=== PATIENT | male | born 1940 | race Caucasian/White ===

== ENCOUNTER 2019-01-22 17:13 | Inpatient (IN) | payer MEDICARE ==
--- OUTSIDE RECORDS SUMMARY | 2019-01-22 17:20 | XMS REPORT | Continuity of Care Document ---
:1940 External Reference #:[id number] Author Name Liset Flores M.D. (transmitted by agent of provider Rashmi Mejia) Address [address] [place] [address] Problems Active Problems Provider Date Right bundle branch block Liset Flores M.D. Onset: 01/20/2018 Dyspnea Liset Flores M.D. Onset: 01/20/2018 Paroxysmal atrial fibrillation Liset Flores M.D. Onset: 09/19/2015 Gastroesophageal reflux disease Liset Flores M.D. Onset: 05/16/2015 Chest pain Liset Flores M.D. Onset: 04/04/2015 Paroxysmal atrial fibrillation Liset Flores M.D. Onset: 03/17/2015 Hyperlipidemia Liset Flores M.D. Onset: 03/17/2015 Pure hypercholesterolemia Liset Flores M.D. Onset: 07/13/2013 Mitral valve disorder Liset Flores M.D. Onset: 07/13/2013 Social History Type Date Description Comments Sex Unknown Tobacco Use Start: Unknown End: Former Cigarette Smoker Unknown Smoking Status Reviewed: 01/20/18 Former Cigarette Smoker ETOH Use consumes 1-2 beers per not every week week Tobacco Use Start: Unknown End: Patient is a former quit smoking in Unknown smoker 1977 Recreational Drug Use Denies Drug Use Exercise Type/Frequency Exercises sporadically active around the home. Allergies, Adverse Reactions, Alerts Active Allergies Reaction Severity Comments Date Oxycodone 07/10/2013 Vicodin 07/10/2013 Lipitor myalgias, incr LFT's 07/10/2013 Metoprolol profound fatigue. 07/30/2014 Multaq diarrhea 07/30/2014 Sutures silk suture, erosion of skin 07/30/2014 Cardizem CD rash rash 03/17/2015 Medications Active Medications SIG Qnty Indications Ordering Provider Date Zetia 1 by mouth 90tabs E78.5 Liset Flores M.D. 04/04/2015 10mg Tablets every day Atenolol 1 by mouth 90tabs Liset Flores M.D. 04/02/2015 25mg Tablets every day Aspirin Low Dose 1 by mouth Liset Flores M.D. 04/01/2015 81mg every day Tablets Glucosamine daily Unknown Chondroitin Tablets Senna S 1-2 tabs every Unknown 8.6-50mg Tablets day Multivitamin Adult 1 by mouth Unknown every day Tablets Medications Administered in Office Medication SIG Qnty Indications Ordering Provider Date Technetium TC 99M Reinier Nima Leger M.D., 04/01/2015 Tetrofosmin, Per Unit Dose FACC, FASNC Up To 40 Millicuries Injection Technetium TC 99M Liset Flores M.D. 04/01/2015 Tetrofosmin, Per Unit Dose Up To 40 Millicuries Injection Immunizations Description No Information Available Vital Signs Date Vital Result Comment 01/20/2018 8:11am Height 72.25 inches 6'0.25" Weight 173.00 lb w/ shoes Heart Rate 66 /min BP Systolic Sitting 112 mmHg lue rg cuff BP Diastolic Sitting 54 mmHg lue rg cuff BP Systolic Standing 120 mmHg lue rg cuff BP Diastolic Standing 64 mmHg lue rg cuff Respiratory Rate 18 /min BMI (Body Mass Index) 23.3 kg/m2 Ejection Fraction 50-55% 12/28/17 12/30/2016 3:02pm Height 72.25 inches 6'0.25" Weight 165.00 lb Heart Rate 60 /min BP Systolic Sitting 102 mmHg Rue reg cuff BP Diastolic Sitting 60 mmHg Rue reg cuff BP Systolic Standing 102 mmHg Rue BP Diastolic Standing 62 mmHg Rue Respiratory Rate 16 /min BMI (Body Mass Index) 22.2 kg/m2 Ejection Fraction 50-55% 12/21/16 Results Description No Information Available Procedures Date Code Description Status 12/29/2018 89643 ECHO Transthoracic, Real-Time 2D With Doppler And Color Completed Flow 12/29/2018 89700 ECHO Transthoracic, Real-Time 2D With Doppler And Color Completed Flow Medical Devices Description No Information Available Encounters Description No Information Available Assessments Date Code Description Provider 01/16/2019 I34.0 Nonrheumatic mitral (valve) insufficiency Liset Flores M.D. 01/16/2019 R94.39 Abnormal result of other cardiovascular function Liset Flores M.D. study 12/29/2018 I34.0 Nonrheumatic mitral (valve) insufficiency Liset Flores M.D. 12/29/2018 I34.0 Nonrheumatic mitral (valve) insufficiency Traveling ECHO 2 12/29/2018 R06.02 Shortness of breath Liset Flores M.D. 12/29/2018 R06.02 Shortness of breath Traveling ECHO 2 Plan of Treatment Future Appointment(s):01/22/2019 3:20 pm [facility] - Liset Flores M.D.I34.0 Nonrheumatic mitral (valve ) lynzfiehgizktX53.39 Abnormal result of other cardiovascular function studyComments:Your stress test showed a lot of leaking and the heart strength did not improve as much as it should.Plan: refer back to Dr Estrada.Referral: Chong Estrada MD, Surgery,ThoracicKnightChong MD, Surgery,Thoracic Functional Status Description No Information Available Mental Status Description No Information Available Referrals Refer to Reason for Referral Status Appt Date Chong Estrada MD I feel pt needs redo MV sx. Stress echo today Sent report and images and echo images should be included. Call if not. [address], [place] [id number] [phone] Chong Estrada MD Needs redo MV sx, see enclosed echo, SE reports Created and CD [address], [place] [id number] [phone]
--- OUTSIDE RECORDS SUMMARY | 2019-01-22 17:20 | XMS REPORT | Summary of Care ---
:1940 Author Organization [facility] Address [address] [address] Care Team Providers Name Role Phone Alysa Pascual MD Primary Care Provider Reason for Visit Reason Comments Knee Pain left knee pain that radiates to left foot ( botton of foot has burning pain ). knee problem is ongoing for 4 weeks and foot pain started tuesday Encounter Details Date Type Department Care Team Description 12/27/2018 Office Visit [place] [facility], Chronic pain of left knee (Primary Dx); Practice PA-C Foot pain, left [address] [place] [address] [place] [address] [phone] Allergies Active Allergy Reactions Severity Noted Date Comments Cardizem Rash 03/10/2015 Atorvastatin Calcium 07/03/2007 Intolerance Oxycodone-Acetaminophen Unknown Reaction 11/04/2010 Pradaxa GI Reaction 03/02/2016 Silk Sutures Other 03/02/2016 infection Hydrocodone-Acetaminophen 07/03/2007 Intolerance documented as of this encounter (statuses as of 12/27/2018) Medications Medication Sig Dispensed Refills Start Date End Date Status ezetimibe (ZETIA) 10 MG Take 10 mg by 0 Active Oral Tab mouth DAILY. aspirin (ECOTRIN) 81 MG Take 81 mg by 0 Active Oral Tab EC mouth DAILY. atenolol (TENORMIN) 25 Take 25 mg by 0 Active MG Oral Tab mouth DAILY. Misc Natural Products Take by mouth 0 Active (OSTEO BI-FLEX JOINT DAILY. SHIELD PO) IBUPROFEN 200 PO Take 400 mg by 0 Active mouth NEEDED. Multiple Vitamin Take by mouth 0 Active (MULTI-VITAMIN PO) DAILY. Omeprazole 40 MG Oral Take 1 Cap by 90 Cap 1 02/13/2018 Active CAPSULE DELAYED RELEASE mouth DAILY 0700 on Empty Stomach. documented as of this encounter (statuses as of 12/27/2018) Active Problems Problem Noted Date Paroxysmal supraventricular tachycardia 03/23/2011 Overview: Dx: [facility] 03/16/2011 Dr. Flores Rotator cuff tear 09/02/2010 Unspecified hearing loss 01/01/2009 Mitral valve replaced 07/04/2007 Overview: Repair [place] 1999; Dr Fish; follows with Dr Flores BPH (benign prostatic hypertrophy) 07/04/2007 Hypercholesterolemia 07/28/2005 Rosacea 07/28/2005 documented as of this encounter (statuses as of 12/27/2018) Immunizations Name Administration Dates Next Due DTAP Vaccine 07/04/2007 Influenza (IM) Preservative Free 02/01/2014, 03/06/2013, 01/24/2012 Influenza Vaccine High Dose 02/13/2018, 02/06/2017, 02/04/2016, 02/01/2015 PNEUMOCOCCAL POLYSACCHARIDE VACCINE 06/10/2017 Pneumococcal Conjugate(13 Valent) 08/12/2014 TETANUS & DIPHTHERIA TOXOID (OVER 7 07/26/2005 YRS) ZOSTER (ZOSTAVAX) VACCINE 08/01/2013 documented as of this encounter Social History Tobacco Use Types Packs/Day Years Used Date Former Smoker Smokeless Tobacco: Never Used Alcohol Use Drinks/Week oz/Week Comments Yes 0 Standard drinks or equivalent 0.0 rarely Sex Assigned at Date Recorded Not on file Job Start Date Occupation Industry Not on file Not on file Not on file Travel History Travel Start Travel End No recent travel history available. documented as of this encounter Last Filed Vital Signs Vital Sign Reading Time Taken Comments Blood Pressure 100/78 12/27/2018 11:50 AM EDT Pulse 77 12/27/2018 11:50 AM EDT Temperature 37.3 12/27/2018 11:50 AM EDT C (99.2 F) Respiratory Rate - - Oxygen Saturation 98% 12/27/2018 11:50 AM EDT Inhaled Oxygen Concentration - - Weight - - Height 182.9 cm (6') 12/27/2018 11:50 AM EDT Body Mass Index - - documented in this encounter Patient Instructions Patient InstructionsDoKelly santos PA-C - 12/27/2018 11:40 AM EDTWear good support shoes Apply heat to knee 10min every night Soak foot in warm soapy water nightly Wrap with ankush bandage during day OTC Ibuprofen 400mg twice daily, take with food Make appointment with Dr. Bella documented in this encounter Progress Notes Kelly Vu PA-C - 12/27/2018 11:40 AM EDT PATIENT: Salazar Landry : 1940 DATE OF SERVICE: 12/27/2018 REFERRING PRACTITIONER: [place] PRIMARY CARE PROVIDER: Alysa Pascual CHIEF COMPLAINT: Chief Complaint Patient presents with Knee Pain left knee pain that radiates to left foot ( botton of foot has burning pain ) . knee problem is ongoing for 4 weeks and foot pain started tuesday Subjective HISTORY OF PRESENT ILLNESS: Salazar Landry is a 78-y.o. male who presents with continuing left knee pain Bottom left foot started hurting 3 days ago Was seen by [facility] X-rays of left knee: Ap, lateral skyline and notch views were obtained. moderate changes are noted in the medial compartment;moderate changes are noted in the lateral compartment;severe are noted in the patella-femoral compartment. Was given cortisone injection Patient told ortho he wanted to see Dr. Bella ([facility]) for further treatment says injection gave relief for about 2 weeks Has not been taking any OTC analgesics Denies fever, chills, nausea, vomiting, diarrhea, chest pains, SOB Past Medical History: Diagnosis Date BPH (benign prostatic hypertrophy) 07/04/2007 Hypercholesterolemia 07/28/2005 MVP (mitral valve prolapse) Rosacea 07/28/2005 Past Surgical History: Procedure Laterality Date RI FEMUR/KNEE SURG UNLISTED RI SHOULDER SURG PROC UNLISTED REPLACE MITRAL VALVE NEC 08/1998 Family History Problem Relation Age of Onset Alcohol/Drug Father Heart Mother 2 mitral valve replacement Arthritis Mother Current Outpatient Medications Medication Sig aspirin (ECOTRIN) 81 MG Oral Tab EC Take 81 mg by mouth DAILY. atenolol (TENORMIN) 25 MG Oral Tab Take 25 mg by mouth DAILY. ezetimibe (ZETIA) 10 MG Oral Tab Take 10 mg by mouth DAILY. IBUPROFEN 200 PO Take 400 mg by mouth NEEDED. Misc Natural Products (OSTEO BI-FLEX JOINT SHIELD PO) Take by mouth DAILY. Multiple Vitamin (MULTI-VITAMIN PO) Take by mouth DAILY. Omeprazole 40 MG Oral CAPSULE DELAYED RELEASE Take 1 Cap by mouth DAILY 0700 on Empty Stomach. No current facility-administered medications for this visit. Allergies Allergen Reactions Cardizem Rash Lipitor [Atorvastatin Calcium] Intolerance Percocet [Oxycodone-Acetaminophen] Unknown Reaction Pradaxa GI Reaction Silk Sutures Other infection Vicodin [Hydrocodone-Acetaminophen] Intolerance Social History Socioeconomic History Marital status: Spouse name: Not on file Number of children: Not on file Years of education: Not on file Highest education level: Not on file Occupational History Not on file Social Needs Financial resource strain: Not on file Food insecurity: Worry: Not on file Inability: Not on file Transportation needs: Medical: Not on file Non-medical: Not on file Tobacco Use Smoking status: Former Smoker Smokeless tobacco: Never Used Substance and Sexual Activity Alcohol use: Yes Alcohol/week: 0.0 standard drinks Comment: rarely Drug use: No Sexual activity: Not on file Lifestyle Physical activity: Days per week: Not on file Minutes per session: Not on file Stress: Not on file Relationships Social connections: Talks on phone: Not on file Gets together: Not on file Attends mormonism service: Not on file Active member of club or organization: Not on file Attends meetings of clubs or organizations: Not on file Relationship status: Not on file Intimate partner violence: Fear of current or ex partner: Not on file Emotionally abused: Not on file Physically abused: Not on file Forced sexual activity: Not on file Other Topics Concern Not on file Social History Narrative Not on file REVIEW OF SYSTEMS: Skin: negative skin lesions Eyes: negative visual blurring Ears/Nose/Throat: negative rhinorrhea or sore throat Respiratory: negative cough Cardiovascular: negative chest pain Gastrointestinal: negative abdominal pain, constipation, diarrhea, nausea or vomiting Genitourinary: negative burning on urination, dysuria Musculoskeletal: positive arthritis/joint pain, left knee pain and ball of foot pain Neurologic: negative numbness or tingling of feet or hands Psychiatric: negative anxiety Hematologic/Lymphatic/Immunologic: negative allergies Endocrine: negative diabetes or hot flashes/sweats Objective PHYSICAL EXAMINATION: VITALS: BP 100/78 (BP Location: Right arm, Patient Position: Sitting) | Pulse 77 | Temp 99.2 F (37.3 C) | Ht 6' (1.829 m) | SpO2 98% | BMI 23.84 kg/m Body mass index is 23.84 kg/m. General appearance - alert, moderate distress, cooperative, oriented times 3 Skin - Skin color, texture, turgor normal. No rashes or lesions. Head - Normocephalic. No masses, lesions, tenderness or abnormalities Eyes - conjunctivae/corneas clear. PERRL, EOM's intact. Neck - Neck supple, FROM. No cervical or supraclavicularadenopathy. left Knee - Pain with palpation medial to patella. Pain with palpation ball of foot Lungs - Good diaphragmatic excursion. Lungs clear. Chest symmetrical. Normal breath sounds. Heart - RRR. No murmurs, clicks or gallops. No peripheral edema. . IMPRESSION: ICD-9-CM ICD-10-CM 1. Chronic pain of left knee 719.46 M25.562 338.29 G89.29 2. Foot pain, left 729.5 M79.672 Plan PLAN: Discussed with patient and , ball of foot pain is from walking differently because of knee pain Wear good support shoes Apply heat to knee 10min every night Soak foot in warm soapy water nightly Wrap with ankush bandage during day OTC Ibuprofen 400mg twice daily, take with food Make appointment with Dr. Bella Author: Kelly Vu PA-C 12/27/2018 11:08 documented in this encounter Plan of Treatment Date Type Specialty Care Team Description 01/25/2019 Office Visit Internal Medicine Alysa Pascual MD [address] [place] [address] [phone] Health Maintenance Due Date Last Done Comments FALL RISK ASSESSMENT 2005 ZOSTER IMMUNIZATION SERIES 09/26/2013 08/01/2013 (2 of 3) MEDICARE ANNUAL WELLNESS 08/01/2014 08/01/2013, 01/24/2012 VISIT COLONOSCOPY SCREENING 08/29/2017 08/29/2008 INFLUENZA VACCINE (#1) 2018 02/13/2018, 02/06/2017, 02/03/2017, Additional history exists LIPID DISORDER SCREENING 08/09/2019 08/08/2014, 01/27/2012, 09/22/2009, Additional history exists DEPRESSION SCREENING 12/28/2019 12/27/2018 PNEUMOCOCCAL 65+YRS Completed 06/10/2017, 08/12/2014 HPV IMMUNIZATION SERIES Aged Out No longer eligible based on patient's age to complete this topic MENINGOCOCCAL VACCINE IMM Aged Out No longer eligible based on patient's age to complete this topic documented as of this encounter Implants Implanted Type Area Rehabilitation Director Device Shelf Model / Identifier Expiration Date Serial / Lot Pushlock 3.5mm - [id number] Left: [employer] [id number] / Implanted: Qty: 2 on 08/20/2010 at [facility] Shoulder / [id number] Rotator Cuff 5mm - [id number] Left: BIOMET [id number] / Implanted: Qty: 2 on 08/20/2010 at [facility] Shoulder / [id number] documented as of this encounter Results Not on filedocumented in this encounter Visit Diagnoses Diagnosis Chronic pain of left knee - Primary Pain in joint, lower leg Foot pain, left Pain in limb documented in this encounter Insurance Payer Benefit Plan / Subscriber ID Effective Dates Phone Address Type Group UHC MEDICARE [employer] xxxxxxxxx 2016-Present UHC ADVANTAGE MEDICARE ADVANTAGE Guarantor Name Account Type Relation to Date of Phone Billing Patient Address Salazar Landry Personal/Family [phone] (Home) [place] [phone] [place] [id number] (Work) documented as of this encounter Advance Directives Type Date Recorded Patient Receiving Manager Explanation Advance Directives 12/26/2012 10:49 AM Health Care Proxy"
[2019-01-22 18:09] LABS: ABS Basophils 0.1 10^3/ul (0-0.2); ABS Eosinophils 0.2 10^3/ul (0-0.6); ABS Lymphocytes 1.5 10^3/ul (1.0-4.8); ABS Neutrophils 6.5 10^3/ul (1.5-7.7); Eosinophil % 1.8 %; Hematocrit 39 % (42-52); Hemoglobin 13.2 g/dL (14.0-18.0); Lymphocyte % 16.3 %; Mean Corpuscular HGB Conc 34 g/dL (31-36); Mean Corpuscular Hemoglobin 29 pg (27-31); Mean Corpuscular Volume 86 fL (80-94); Mean Platelet Volume 8.2 fL (7.4-10.4); Platelet Count 234 10^3/uL (150-450); Red Blood Count 4.58 10^6 /uL (4.18-5.48); Red Cell Distribution Width 16 % (10-15); White Blood Count 9.3 10^3/uL (3.5-10.8)
[2019-01-22 18:14] LABS: INR 1.09 (0.82-1.09)
--- NOTE | 2019-01-22 18:16 | ED ---
HPI Chest Pain - HPI Summary HPI Summary: This pt is a 78 y/o male [facility] referred by Dr. Flores c/o chest pain today. Pt went to see Dr. Flores today for a 1 year follow up after a stress test and echo. Pt went accompanied by . had reported today that pt had dizziness spell, felt weak, and went down on his knees at around 0930 today. Additionally pt had chest pain with SOB on exertion today. Per Dr. Flores's note, noted several episodes of these symptoms in this last month and is concerned Dr. Olivia has not received information from Dr. Flores 's office. Dr. Flores refers pt to the ED today for admission due to chest pain and near syncope, collapsing to the ground today, despite having had normal coronaries in the past. Dr. Flores would like pt's labs checked for heart damage and a cardiac cath in the morning pre redo valve surgery. Currently pt reports mild chest pain which he rates 1 to 2 out of 10 in severity. He denies nausea, vomiting, SOB. PMHx includes afib, SVT, RBBB, peripheral vascular disease, dyslipidemia, valve replacement. - History of Current Complaint Chief Complaint: EDChestPainROMI Time Seen by Provider: 01/22/19 18:08 Hx Obtained From: Patient, Medical Records - from Dr. Flores's office Onset/Duration: Started Hours Ago, Still Present Timing: Lasting Hours Initial Severity: Moderate Current Severity: Mild Pain Intensity: 2 Pain Scale Used: 0-10 Numeric Chest Pain Location: Diffuse Chest Pain Radiates: No Aggravating Factor(s): Nothing Alleviating Factor(s): Nothing Associated Signs and Symptoms: Positive: Chest Pain, Dizziness. Negative: Shortness of Breath, Fever, Nausea, Vomiting - Additional Pertinent History Primary Care Physician: [id number] - Allergy/Home Medications Allergies/Adverse Reactions: Allergies Allergy/AdvReac Type Severity Reaction Status Date / Time MS Diltiazem Allergy Intermediate Rash And Verified 12/14/18 08:29 [From Sonia FUENTES] Itching MS Hydrocodone [Hydrocodone] Allergy Intermediate Hallucinati Verified 12/14/18 08:29 ons MS Oxycodone [Oxycodone] Allergy Unknown Verified 12/14/18 08:29 Reaction Details MS Rosuvastatin Allergy Unknown Verified 12/14/18 08:29 [From Crestor] Reaction Details MS Atorvastatin AdvReac Intermediate See Comment Verified 12/14/18 08:29 [From Lipitor] silk sutures Allergy See Comment Uncoded 12/14/18 08:29 PMH/Surg Hx/FS Hx/Imm Hx Endocrine/Hematology History: Denies: Hx Diabetes Cardiovascular History: Reports: Other Cardiovascular Problems/Disorders - Mitral valve repair 1998 Denies: Hx Congestive Heart Failure, Hx Hypertension History: Denies: Hx Renal Disease Musculoskeletal History: Reports: Other Musculoskeletal History - rotator cuff surgery, knee surgery Sensory History: Reports: Hx Contacts or Glasses, Hx Hearing Problem - [facility] Opthamlomology History: Reports: Hx Contacts or Glasses - Surgical History Surgery Procedure, Year, and Place: MITRAL VALVE REPAIR 1998, BILATERAL KNEE REPLACEMENTS Infectious Disease History: No Infectious Disease History: Denies: Traveled Outside the [place] in Last 30 Days - Family History Known Family History: Positive: Cardiac Disease - Mother with valvular heart disease - Social History Alcohol Use: 1-3 drinks per week Substance Use Type: Reports: None Smoking Status (MU): Former Smoker Type: Cigarettes Review of Systems Negative: Fever, Chills Positive: Chest Pain Negative: Shortness Of Breath Negative: Vomiting, Nausea Neurological: Other - POSITIVE: dizziness All Other Systems Reviewed And Are Negative: Yes Physical Exam - Summary Physical Exam Summary: VITAL SIGNS: Reviewed. GENERAL: Patient is a well-developed and nourished male who is lying comfortable in the stretcher. Patient is not in any acute respiratory distress. HEAD AND FACE: No signs of trauma. No ecchymosis, hematomas or skull depressions. No sinus tenderness. EYES: PERRLA, EOMI x 2, No injected conjunctiva, no nystagmus. EARS: Hearing grossly intact. Ear canals and tympanic membranes are within normal limits. MOUTH: Oropharynx within normal limits. NECK: Supple, trachea is midline, no adenopathy, no JVD, no carotid bruit, no c- spine tenderness, neck with full ROM. CHEST: Symmetric, no tenderness at palpation LUNGS: Clear to auscultation bilaterally. No wheezing or crackles. CVS: Regular rate and rhythm, S1 and S2 present, no murmurs or gallops appreciated. ABDOMEN: Soft, non-tender. No signs of distention. No rebound no guarding, and no masses palpated. Bowel sounds are normal. EXTREMITIES: FROM in all major joints, no edema, no cyanosis or clubbing. NEURO: Alert and oriented x 3. No acute neurological deficits. Speech is normal and follows commands. SKIN: Dry and warm Triage Information Reviewed: Yes Vital Signs On Initial Exam: Initial Vitals Temp Pulse Resp BP Pulse Ox 97.4 F 116 16 118/82 100 01/22/19 17:19 01/22/19 17:19 01/22/19 17:19 01/22/19 17:19 01/22/19 17:19 Vital Signs Reviewed: Yes Diagnostics - Vital Signs Vital Signs Temp Pulse Resp BP Pulse Ox 01/22/19 17:19 97.4 F 116 16 118/82 100 - Laboratory Lab Results: Lab Results 01/22/19 Range/Units 17:55 WBC 9.3 (3.5-10.8) 10^3/uL RBC 4.58 (4.18-5.48) 10^6 /uL Hgb 13.2 L (14.0-18.0) g/dL Hct 39 L (42-52) % MCV 86 (80-94) fL MCH 29 (27-31) pg MCHC 34 (31-36) g/dL RDW 16 H (10-15) % Plt Count 234 (150-450) 10^3/uL MPV 8.2 (7.4-10.4) fL Neut % (Auto) 70.8 % Lymph % (Auto) 16.3 % [place] % (Auto) 10.3 % Eos % (Auto) 1.8 % Baso % (Auto) 0.8 % Absolute Neuts (auto) 6.5 (1.5-7.7) 10^3/ul Absolute Lymphs (auto) 1.5 (1.0-4.8) 10^3/ul Absolute Monos (auto) 1.0 H (0-0.8) 10^3/ul Absolute Eos (auto) 0.2 (0-0.6) 10^3/ul Absolute Basos (auto) 0.1 (0-0.2) 10^3/ul Absolute Nucleated RBC 0.0 10^3/ul Nucleated RBC % 0.0 Result Diagrams: 01/22/19 17:55 01/22/19 17:55 Lab Statement: Any lab studies that have been ordered have been reviewed, and results considered in the medical decision making process. - EKG 17:16 Cardiac Rate: NL - at 83 bpm EKG Rhythm: Atrial Fibrillation Summary of EKG Findings: Atrial fibrillation at 83 bpm. 1903 Cardiac Rate: NL - at 82 bpm EKG Rhythm: Atrial Fibrillation Summary of EKG Findings: Atrial fibrillation at [address] elevations. Chest Pain Course/Dx - Course Assessment/Plan: Patient's blood work without any significant abnormality. The troponin 0.00. EKG shows an patient with RVR. As recommended by Dr. Flores, jewelry estimator, and the patient will be admitted to the hospitalist services for further workup and management. I discussed my physical exam and findings with Dr. Webber, from the hospitalist services, who accepted the patient for admission. The patient is hemodynamically stable, alert and oriented 3. - Diagnoses Provider Diagnoses: Chest pain - Provider Notifications Discussed Care Of Patient With: Brayan Webber - hospitalist Time Discussed With Above Provider: 19:06 Instructed by Provider To: Admit As Inpatient - Critical Care Time Critical Care Time: 30-74 min Discharge ED - Sign-Out/Discharge Documenting (check all that apply): Patient Departure - Admit to [facility] Patient Received Moderate/Deep Sedation with Procedure: No - Discharge Plan Condition: Stable Disposition: ADMITTED TO [facility] Referrals: Alysa Pascual MD [Primary Care Provider] - - Billing Disposition and Condition Condition: STABLE Disposition: Admitted to [facility] - Attestation Statements Document Initiated by Kathryn: Yes Documenting Scribe: Belen Hobbs Provider For Whom Kathryn is Documenting (Include Credential): Delgado Siddiqui MD Scribe Attestation: Belen Vieira, scribed for Delgado Siddiqui MD on 01/22/19 at 2135. Scribe Documentation Reviewed: Yes Provider Attestation: The documentation as recorded by the Belen tarango accurately reflects the service I personally performed and the decisions made by me, Delgado Siddiqui MD Status of Scribe Document: Viewed
[2019-01-22 18:21] LABS: Albumin 4.1 g/dL (3.2-5.2); Albumin/Globulin Ratio 1.4 (1-3); BUN/Creatinine Ratio 15.2 (8-20); Calcium 9.2 mg/dL (8.6-10.3); EGFR African American 88.5 (>60); EGFR Non-African American 73.1 (>60); Globulin 2.9 g/dL (2-4); Potassium 4.5 mmol/L (3.5-5.0); Total Bilirubin 0.6 mg/dL (0.2-1.0)
[2019-01-22] MEDS ORDERED: Acetaminophen TAB* 325 MG PO PRN (22:06)
--- NOTE | 2019-01-22 23:54 | HP ---
CC: Dr. Pascual; Dr. Flores * HISTORY AND PHYSICAL: DATE OF ADMISSION: 01/22/19 - EMERGENCY DEPT PROVIDER: Flavia Estrella NP PRIMARY CARE PROVIDER: Dr. Alysa Pascual. ATTENDING PHYSICIAN WHILE IN THE HOSPITAL: Dr. Suni Farley * (dictated by Flavia Estrella NP). CHIEF COMPLAINT: 1. Chest pain. 2. Collapse. HISTORY OF PRESENT ILLNESS: Mr. Landry is a 78-year-old male with a past medical history significant for atrial fibrillation, mitral valve regurgitation , mitral valve prolapse status post mitral valve repair at [facility] in 1998, supraventricular tachycardia, dyslipidemia, peripheral vascular disease in 2014 with mesenteric plaque, proximal, moderate, noted on CT, who was at Dr. Flores's office today for a followup after echo and stress test. The patient reported today that the patient was not feeling good. The reported that he has been having a lot of dizzy spells and felt weak. He went down on his knees today approximately 9:30 this morning. The patient states that he had chest pain and has been having shortness of breath with exertion. The patient recently underwent cardiac stress testing in Dr. Flores's office on 01/18/19. At that time, he was found to have an abnormal stress test which showed a lot of leaking and decreased heart strength. Due to the patient's continued complaints of, per the , having lots of spells of dizziness and feeling weak and his episode of collapse today, Dr. Flores recommended the patient present to the emergency room for further evaluation and monitoring and reported in her note to proceed with a cardiac catheterization preprocedure for redo mitral valve surgery. While in the emergency room, the patient had routine lab work drawn. He had a CBC and a BMP. He had troponins that were within normal limits. Hospital Medicine was asked to see and consult due to the patient's chest pain and collapse and recommendation for admission from Dr. Flores's office. PAST MEDICAL HISTORY: Significant for mitral valve prolapse, status post repair of the mitral valve in 1998 at [facility]; mitral regurgitation; atrial fibrillation; supraventricular tachycardia; PVCs; dyslipidemia; peripheral vascular disease. PAST SURGICAL HISTORY: Mitral valve repair in 1998, tonsillectomy. HOME MEDICATIONS: Include: 1. Aspirin 81 mg. 2. Zetia 10 mg p.o. daily. 3. Atenolol 25 mg p.o. daily. 4. Senna 3 to 4 tablets p.o. daily. 5. Multivitamin 1 tablet p.o. daily. 6. Glucosamine chondroitin p.o. daily. ALLERGIES: He has an allergy to OXYCODONE, VICODIN, LIPITOR, METOPROLOL, MULTAQ , SUTURES, and DILTIAZEM. FAMILY HISTORY: No reported history of coronary artery disease, diabetes, or cancer within the family. SOCIAL HISTORY: The patient reports that he quit smoking approximately 40 years ago. Prior to that, he smoked for 15 years a pack a day. He does report occasional alcohol use. No drug illicit use. He is retired. He is . He lives with his . He walks unassisted. Surrogate decision maker in the event he is unable to make his own decisions is his . He is a full code. REVIEW OF SYSTEMS: The patient denies any fever, chills, unintended weight loss , chest pain. He denies any edema. Denies any cough or hemoptysis. He does report shortness of breath with exertion. He denies any nausea, vomiting, diarrhea, abdominal pain, hematuria, dysuria, focal weakness, or sensory loss. Denies any visual complaints, dysphagia, arthralgias, myalgias, rashes, lesions , open sores, psychosis, or anxiety. PHYSICAL EXAMINATION GENERAL: At this time, Mr. Landry is alert and oriented, resting on the stretcher in the emergency room. He is in no acute distress. VITAL SIGNS: Blood pressure is 116/68, heart rate 81, respirations are 14, O2 saturations 98%, temperature was 97.4. HEENT: Head is atraumatic, normocephalic. Eyes: EOMs are intact. Sclerae anicteric and not pale. Oral mucosa appeared to be moist. NECK: Supple. LUNGS: Clear to auscultation bilaterally. No wheezes, rales, or rhonchi. CARDIAC: S1, S2. Regular rate and rhythm. He does have a systolic murmur. ABDOMEN: Soft and nontender. Bowel sounds are present x4. EXTREMITIES: He is able to move all 4 extremities. There is no clubbing or cyanosis. Pedal pulses are +2 bilaterally. NEUROLOGIC: He is awake, alert, oriented x3. Speech is clear. Thought process is intact. There are no gross focal deficits. SKIN: Intact. LABORATORY DATA AND DIAGNOSTIC STUDIES: WBCs are 9.3, RBCs 4.58, hemoglobin 13.2, hematocrit was 39, platelet count was 234. INR was 1.09. Sodium 137, potassium 4.5, chloride 105, carbon dioxide was 29, anion gap of 3, BUN was 15, creatinine 0.99, glucose was 92, calcium 9.2. Total bilirubin 0.60, AST was 16 , ALT was 17, alkaline phosphatase was 61. Troponin was 0.00 x2. ASSESSMENT AND PLAN: Mr. Landry is a 78-year-old male with a past medical history significant for atrial fibrillation, mitral valve prolapse, status post repair, mitral regurgitation, supraventricular tachycardia, premature ventricular contractions, dyslipidemia, peripheral vascular disease, who was sent to the emergency room from Dr. Flores's office after the complaints of dizziness, chest pain, exertional shortness of breath, and abnormal stress test from 01/18/19. He will be admitted inpatient for: 1. Chest pain. We will continue to trend his troponins. I will repeat a third troponin. His first 2 initial troponins were negative. The patient currently denies any chest pain at this time. The patient did have a recent stress test from Dr. Flores's office. At this time, we will not repeat his stress test. In her office note, she has recommended cardiac catheterization and I will touch base with Cardiology on arrangements for the cardiac catheterization. I did make Mr. Landry n.p.o. after midnight. 2. Collapse. The patient did have weakness and collapsed at home with associated chest pain. Due to these findings, the patient was sent to the emergency room. He has had negative troponins x2. His EKG is without changes. We will monitor him on telemetry overnight. It is unclear at this time if his collapse is related to his mitral valve disease. Dr. Flores has recommended in her cardiology followup note that the patient would have a cardiac catheterization preop for repeat mitral valve replacement. 3. Atrial fibrillation. The patient should continue on atenolol 25 mg p.o. daily. 4. FEN: He can have a heart healthy diet, caffeine okay. He will be n.p.o. after midnight for possible cardiac catheterization in the morning. 5. Code status is full code. 6. DVT prophylaxis: I will place him on heparin subcu. TIME SPENT: Time spent on this admission was 60 minutes; greater than half that time was spent at the bedside reviewing events leading thus far to his hospitalization and performing physical exam, reviewing my plan of care. I have discussed this with my attending Dr. Suni Farley, she is in agreement with my plan. ADDENDUM NO.2: The patient did have a transthoracic echocardiogram on 12/29/18 at [facility]. At that time, the findings of the left ventricular cavity was mildly to moderately dilated. Mild concentric hypertrophy of the left ventricle. Visual EF was 40% to 45%. Abnormal septal wall motion due to postoperative valve and intraatrial aneurysm is present. No evidence of PFO. Low normal right ventricular function, [place] tri[place]let aortic valve with mild-to- moderate regurgitation, close to mild brief early diastolic reversal in the ascending aorta consistent with moderate AR short- axis jet with an LVOT is small consistent with mild AR, normal aortic valve leaflet mobility, [place] mitral valve status post repair with moderate-to- severe regurgitation, restricted mitral valve leaflets. Posterior leaflets are immobile. Anterior leaflets are moderately restricted. The mitral valve stenosis post repair mean gradient is 2.1, PHT is 152, [place] tricuspid valves with mild regurgitation, [id number] dilated ascending aorta with mild dilated aortic arch at 4.1 cm. Compared to prior echo on 12/28/17, LV dilation is stable. EF estimation has decreased from 50 to 55. RV function is normal. AI is stable. MR is stable. MS has progressed. PTH has increased from 44 to 152. MG has increased from 1.3 to 2.1. Aortic arch diameter previously 4.1 cm. Ascending aorta previously 2.5 cm. FLAVIA ESTRELLA, JACQUARD CARD LACER [id number]/CPS #: [id number]/CPS #: [id number]/CPS #: [id number] HILDA
--- NOTE | 2019-01-23 00:52 | HP ---
HISTORY AND PHYSICAL: ADDENDUM: The patient did have a transthoracic echocardiogram on 12/29/18 at [facility]. At that time, the findings of the left ventricular cavity was mildly to moderately dilated. Mild concentric hypertrophy of the left ventricle. Visual EF was 40% to 45%. Abnormal septal wall motion due to postoperative valve and intraatrial aneurysm is present. No evidence of PFO. Low normal right ventricular function, [place] trileaflet aortic valve with mild-to- moderate regurgitation, close to mild brief early diastolic reversal in the ascending aorta consistent with moderate AR short- axis jet with an LVOT is small consistent with mild AR, normal aortic valve leaflet mobility, [place] mitral valve status post repair with moderate-to- severe regurgitation, restricted mitral valve leaflets. Posterior leaflets are immobile. Anterior leaflets are moderately restricted. The mitral valve stenosis post repair mean gradient is 2.1, PHT is 152, [place] tricuspid valves with mild regurgitation, [id number] dilated ascending aorta with mild dilated aortic arch at 4.1 cm. Compared to prior echo on 12/28/17, LV dilation is stable. EF estimation has decreased from 50 to 55. RV function is normal. AI is stable. MR is stable. MS has progressed. PTH has increased from 44 to 152. MG has increased from 1.3 to 2.1. Aortic arch diameter previously 4.1 cm. Ascending aorta previously 2.5 cm. CORTEZ RUBENS, WILLIAM [id number]/[facility] #: [id number] [facility]. [facility] HOSPITALVivian
--- NOTE | 2019-01-23 02:40 | HP ---
HISTORY AND PHYSICAL: ADDENDUM: HISTORY OF PRESENT ILLNESS: Mr. Landry is a 78-year-old male with past medical history significant for SVT, paroxysmal atrial fibrillation, mitral valve prolapse, supraventricular tachycardia, PVCs, dyslipidemia, peripheral vascular disease, who presented to the emergency room from Dr. Flores's office after complaints of chest pain and collapse at home this morning at 9:30. The patient recently underwent cardiac stress testing in Dr. Flores's office on . At that time, he was found to have an abnormal stress test which showed a lot of leaking and decreased heart strength, did not improve as much as it should. Due to the patient's continued complaints of, per the , having lots of spells of dizziness and feeling weak and his episode of collapse today, Dr. Flores recommended the patient present to the emergency room for further evaluation and monitoring and reported in her note to proceed with a cardiac catheterization preprocedure for redo valve surgery. While in the emergency room, the patient had routine lab work drawn. He had a CBC and a BMP. He had troponins that were within normal limits. Hospital Medicine was asked to see and consult due to the patient's chest pain and collapse and recommendation for admission from Dr. Flores's office. PAST MEDICAL HISTORY: Significant for mitral valve prolapse, status post repair of the mitral valve in 1998 at [facility] with ; mitral regurgitation; atrial fibrillation; supraventricular tachycardia; PVCs; dyslipidemia; peripheral vascular disease. PAST SURGICAL HISTORY: Mitral valve repair in 1998, tonsillectomy. HOME MEDICATIONS: Include: 1. Aspirin 81 mg. 2. Zetia 10 mg p.o. daily. 3. Atenolol 25 mg p.o. daily. 4. Senna 3 to 4 tablets p.o. daily. 5. Multivitamin 1 tablet p.o. daily. 6. Glucosamine chondroitin p.o. daily. ALLERGIES: He has an allergy to OXYCODONE, VICODIN, LIPITOR, METOPROLOL, MULTAQ , SUTURES, and DILTIAZEM. FAMILY HISTORY: No reported history of coronary artery disease, diabetes, or cancer within the family. SOCIAL HISTORY: The patient reports that he quit smoking approximately 40 years ago. Prior to that, he smoked for 15 years a pack a day. He does report occasional alcohol use. No drug illicit use. He is retired. He is . He lives with his . He walks unassisted. Surrogate decision maker in the event he is unable to make his own decisions is his . He is a full code. REVIEW OF SYSTEMS: The patient denies any fever, chills, unintended weight loss , chest pain. He denies any edema. Denies any cough or hemoptysis. He does report shortness of breath with exertion. He denies any nausea, vomiting, diarrhea, abdominal pain, hematuria, dysuria, focal weakness, or sensory loss. Denies any visual complaints, dysphagia, arthralgias, myalgias, rashes, lesions , open sores, psychosis, or anxiety. PHYSICAL EXAMINATION GENERAL: At this time, Mr. Landry is alert and oriented, resting on the stretcher in the emergency room. He is in no acute distress. VITAL SIGNS: Blood pressure is 116/68, heart rate 81, respirations are 14, O2 saturations 98%, temperature was 97.4. HEENT: Head is atraumatic, normocephalic. Eyes: EOMs are intact. Sclerae anicteric and not pale. Oral mucosa appeared to be moist. NECK: Supple. LUNGS: Clear to auscultation bilaterally. No wheezes, rales, or rhonchi. CARDIAC: S1, S2. Regular rate and rhythm. He does have a systolic murmur. ABDOMEN: Soft and nontender. Bowel sounds are present x4. EXTREMITIES: He is able to move all 4 extremities. There is no clubbing or cyanosis. Pedal pulses are +2 bilaterally. NEUROLOGIC: He is awake, alert, oriented x3. Speech is clear. Thought process is intact. There are no gross focal deficits. SKIN: Intact. LABORATORY DATA AND DIAGNOSTIC STUDIES: WBCs are 9.3, RBCs 4.58, hemoglobin 13.2, hematocrit was 39, platelet count was 234. INR was 1.09. Sodium 137, potassium 4.5, chloride 105, carbon dioxide was 29, anion gap of 3, BUN was 15, creatinine 0.99, glucose was 92, calcium 9.2. Total bilirubin 0.60, AST was 16 , ALT was 17, alkaline phosphatase was 61. Troponin was 0.00 x2. ASSESSMENT AND PLAN: Mr. Landry is a 78-year-old male with a past medical history significant for atrial fibrillation, mitral valve prolapse, status post repair, mitral regurgitation, supraventricular tachycardia, premature ventricular contractions, dyslipidemia, peripheral vascular disease, who was sent to the emergency room from Dr. Flores's office after the complaints of dizziness, chest pain, exertional shortness of breath, and abnormal stress test from 01/18/19. He will be admitted inpatient for: 1. Chest pain. We will continue to trend his troponins. I will repeat a third troponin. His first 2 initial troponins were negative. The patient currently denies any chest pain at this time. The patient did have a recent stress test from Dr. Flores's office. At this time, we will not repeat his stress test. In her office note, she has recommended cardiac catheterization and I will touch base with Cardiology on arrangements for the cardiac catheterization. I did make Mr. Landry n.p.o. after midnight. 2. Collapse. The patient did have weakness and collapsed at home with associated chest pain. Due to these findings, the patient was sent to the emergency room. He has had negative troponins x2. His EKG is without changes. We will monitor him on telemetry overnight. It is unclear at this time if his collapse is related to his mitral valve disease. Dr. Flores has recommended in her cardiology followup note that the patient would have a cardiac catheterization preop for repeat mitral valve replacement. 3. Atrial fibrillation. The patient should continue on atenolol 25 mg p.o. daily. 4. FEN: He can have a heart healthy diet, caffeine okay. He will be n.p.o. after midnight for possible cardiac catheterization in the morning. 5. Code status is full code. 6. DVT prophylaxis: I will place him on heparin subcu. TIME SPENT: Time spent on this admission was 60 minutes; greater than half that time was spent at the bedside reviewing events leading thus far to his hospitalization and performing physical exam, reviewing my plan of care. I have discussed this with my attending Dr. Suni Farley, she is in agreement with my plan. CORTEZ ART, WILLIAM [id number]/[facility] #: [id number] [facility]ENTERVivian
[2019-01-23 05:40] LABS: ABS Basophils 0.1 10^3/ul (0-0.2); ABS Eosinophils 0.2 10^3/ul (0-0.6); ABS Lymphocytes 1.5 10^3/ul (1.0-4.8); ABS Monocytes 0.8 10^3/ul (0-0.8); ABS Neutrophils 6.9 10^3/ul (1.5-7.7); Eosinophil % 1.6 %; Hematocrit 37 % (42-52); Hemoglobin 12.3 g/dL (14.0-18.0); Lymphocyte % 15.5 %; Mean Corpuscular HGB Conc 34 g/dL (31-36); Mean Corpuscular Hemoglobin 29 pg (27-31); Mean Corpuscular Volume 85 fL (80-94); Mean Platelet Volume 8.3 fL (7.4-10.4); Nucleated Red Blood Cells % 0.1; Platelet Count 210 10^3/uL (150-450); Red Blood Count 4.31 10^6 /uL (4.18-5.48); Red Cell Distribution Width 16 % (10-15); White Blood Count 9.4 10^3/uL (3.5-10.8)
[2019-01-23 05:57] LABS: Anion Gap 7 mmol/L (2-11); BUN/Creatinine Ratio 15.9 (8-20); Blood Urea Nitrogen 13 mg/dL (6-24); CO2 Carbon Dioxide 23 mmol/L (22-32); Chloride 109 mmol/L (101-111); EGFR African American 109.9 (>60); EGFR Non-African American 90.9 (>60); Glucose 90 mg/dL (70-100); Sodium 139 mmol/L (135-145)
[2019-01-23] MEDS: Heparin VIAL(*) 5000 UNITS/ML VIAL (FIVE THOUSAND) SUBCUT SCH ×2 (07:31→14:06)
[2019-01-23] MEDS: Aspirin EC TAB* 81 MG TAB.EC PO SCH (08:41)
[2019-01-23] MEDS: Atenolol TAB* 25 MG PO SCH (09:07)
[2019-01-23] MEDS ORDERED: Diazepam TAB(*) 5 MG PO PRN (12:35)
[2019-01-23] MEDS ORDERED: diPHENhydraMINE PO* 25 MG PO PRN (12:35)
[2019-01-23] MEDS ORDERED: NS 0.9% 1000 ML** 1,000 ML IV SCH (12:45)
--- NOTE | 2019-01-23 13:16 | PN ---
Hospitalist Progress Note Date of Service: 01/23/19 Subjective: The patient said he is feeling fine today with no episodes of chest pain, light headedness or dizziness. Objective: GENERAL: At this time, Mr. Landry is alert and oriented, resting on the stretcher in the emergency room. He is in no acute distress. VITAL SIGNS: Blood pressure is 112/55, heart rate 85, respirations are 20, O2 saturations 99%, temperature was 98. HEENT: Head is atraumatic, normocephalic. Eyes: EOMs are intact. Sclerae anicteric and not pale. Oral mucosa appeared to be moist. NECK: Supple. LUNGS: Clear to auscultation bilaterally. No wheezes, rales, or rhonchi. CARDIAC: S1, S2. Regular rate and rhythm. He does have a systolic murmur. ABDOMEN: Soft and nontender. Bowel sounds are present. EXTREMITIES: He is able to move all 4 extremities. There is no clubbing or cyanosis. NEUROLOGIC: He is awake, alert, and Speech is clear. Thought process is intact. There are no gross focal deficits. Yesterday he was confused during his episode and doesnt remember it. Hgb: 12.3 L Hct: 37 L Rdw: 16 h EKG: Atrial flutter, LVH, QRS>120, RBBB. Assessment: Mr. Landry is a 78-year-old male with a past medical history significant for atrial fibrillation, mitral valve regurgitation, mitral valve prolapse status post mitral valve repair at [facility] in 1998, supraventricular tachycardia, dyslipidemia, peripheral vascular disease in 2014 with mesenteric plaque, proximal, moderate, noted on CT, he was at Dr. Flores's office for a follow up after echo and stress test. The patient reported initially that he was not feeling good. The reported that he has been having a lot of dizzy spells and felt weak. He went down on his knees yesterday approximately at 9: 30 this morning. The patient stated that he had been having chest pain and had been having shortness of breath with exertion. Plan: 1. Chest pain. Possible etiologies include unstable angina or ME, which can be ruled out based of the EKG. We will continue to trend his troponins. His first 2 initial troponins were negative yesterday. The patient currently denies any chest pain at this time. Dr. Soni was consulted, patient has been having worsening mitral reguritation over the last couple of years. Mitral valve repair surgery should be done in the near future. Cardiac catherization was ordered. He will be on diazepam 5 mg PO and diphenhydramine 25 mg PO. He is on aspirin 81 mg PO daily, acetaminophen 650 mg PO Q4H PRN, and atenolol 25 mg PO daily. 2. Collapse. The patient did have weakness and collapsed at home with associated chest pain. Due to these findings, the patient was sent to the emergency room. He has had negative troponins x2. His EKG is without changes. We will monitor him on telemetry overnight. It is unclear at this time if his collapse is related to his mitral valve disease. Dr. Flores has recommended in her cardiology follow-up note that the patient would have a cardiac catheterization preop for repeat mitral valve replacement. 3. Atrial fibrillation. The patient should continue on atenolol 25 mg p.o. daily. 4. DVT prophylaxis: I will place him on heparin subcu. 5,000 units subcut Q8HR.
--- NOTE | 2019-01-23 13:38 | CONS ---
CC: Dr. Alysa Pascual; Dr. Liset Flores; Dr. Chong Estrada, [facility] * CARDIOLOGY CONSULTATION NOTE: DATE OF CONSULT: 01/23/19 INDICATION FOR CONSULTATION: Mitral regurgitation, chest pain, collapse. HISTORY OF PRESENT ILLNESS: The patient states that he does have a history of mitral valve repair back in 1998 who comes in today because he was seen by Dr. Flores yesterday and was reporting a story of when he had chest pain and collapse. The patient is somewhat vague as to the details of the event. The patient states that he was at home, he started having some chest pain. He denied any nausea. Denied any diaphoresis. He moved to a different location and then collapsed on to the floor. He thinks he hit his ribs on the side of the table, but cannot be sure he did not hit his head. The patient was seen by Dr. Flores yesterday and Dr. Flores referred him to the hospital for evaluation. The patient does have moderate to severe regurgitation of his mitral valve after mitral valve repair in 1998. The patient did have a stress test on 01/16/19; at that time, the patient exercised for 4-1/2 minutes. His echocardiogram showed poor augmentation of the left ventricle. The patient did have a cardiac catheterization in April of 2015 which showed normal coronary arteries and moderate to severe mitral regurgitation. His ejection fraction at that time was 50%. A recent echocardiogram at our office on 12/29/18 demonstrated ejection fraction of 40% to 45%. The patient is being evaluated for mitral valve repair surgery for second time. PAST MEDICAL HISTORY: Significant for right bundle-branch block, gastroesophageal reflux disease, hyperlipidemia, mitral valve disorder, peripheral vascular disease, paroxysmal atrial fibrillation. PAST SURGICAL HISTORY: Mitral valve repair in 1998. OUTPATIENT MEDICATIONS: 1. Zetia 10 mg a day. 2. Atenolol 25 mg a day. 3. Aspirin 81 mg a day. 4. Multivitamin a day. 5. Glucosamine. ALLERGIES: To MULTAQ, CARDIZEM, METOPROLOL, LIPITOR, VICODIN. FAMILY HISTORY: No family history of early coronary artery disease or cardiac arrhythmias. SOCIAL HISTORY: He is and lives with his . 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 He is a previous smoker, quit in 1976. Rare alcohol intake. Rare caffeine intake. He does exercise occasionally. REVIEW OF SYSTEMS: Negative for fevers and chills. Negative for changes in bowel or bladder habits. Negative for changes in weight. Other 12-point review is unremarkable. PHYSICAL EXAM: Height is 6 feet 1 inch, weight is 164 pounds. Temperature 98, heart rate is 85, blood pressure 112/55, respiratory rate is 20, oxygen saturation 99% on room air. Sclerae anicteric. Oropharynx is pink without erythema. Carotids are 2+ without bruits. JVD is normal. Thyroid is normal. Cardiac Exam: S1, S2, irregular. 3/6 systolic ejection murmur heard best at the apex. PMI is normal. Lungs are clear to auscultation. There is no dullness to percussion. Abdomen is soft, nontender, nondistended with normoactive bowel sounds. Extremities show no edema. He has 2+ pulses throughout. The patient is awake, alert, and oriented. He moves all 4 extremities equally. DIAGNOSTIC STUDIES/LABORATORY STUDIES: CBC within normal limits. Chemistries within normal limits. Troponins are negative x3. AST and ALT are normal. INR 1.09. EKG shows atrial fibrillation. IMPRESSION AND PLAN: This is a 78-year-old gentleman with a history of mitral valve repair back in 1998 who has been having worsening mitral regurgitation over the last couple of years. It is at the point where Dr. Flores wants him a repeat mitral valve surgery done in the near future. The patient did have an episode of collapse and chest pain at home of unclear etiology. Dr. Flores has requested that the patient undergo cardiac catheterization and perhaps transfer up to [facility] for evaluation of mitral valve repair. The patient's medications will remain the same. The patient will be started on anticoagulation after the cardiac catheterization. [id number]/[facility] #: [id number] [facility]
[2019-01-23] MEDS ORDERED: Lidocaine 1% INJ* 10 MG/ML 30 ML SDV ONE (14:32)
[2019-01-23] MEDS ORDERED: nitroGLYCERIN DRIP* 25,000 MCG/250 ML BTL ONE (14:32)
[2019-01-23] MEDS ORDERED: Midazolam* 1 MG/ML 5 ML VIAL (5 MG) ONE (14:32)
[2019-01-23] MEDS ORDERED: Heparin(*) 1000 UNIT/ML 10 ML VIAL CATH LAB IV ONE (14:32)
[2019-01-23] MEDS ORDERED: fentaNYL* 50 MCG/ML 2 ML VIAL (100 MCG VIAL) ONE (14:32)
[2019-01-23] MEDS ORDERED: VERAPAMIL 2.5 MG/ML 2 ML VIAL ** 5 mg/2 ml ONE (14:32)
[2019-01-23] MEDS ORDERED: Iohexol 350 (CONTRAST) 200 ML MDV IV ONE ×2 (14:32→14:33)
[2019-01-23] MEDS ORDERED: Heparin 2 UNITS/ML IVPREMIX* 2,000 ML IV ONE (14:32)
--- NOTE | 2019-01-23 14:37 | PN ---
Subjective Date of Service: 01/23/19 Interval History: Patient had no complain of chest pain, fainting spell or syncope episode since admission. Patient appeared to be difficult in understanding and forgetful. Noted from his , he had been forgetful for quite some time and had never been evaluated before. 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 Stop: 01/24/19 12:34 Heparin Sodium (Porcine) (Heparin Vial(*)) 5,000 units SUBCUT Q8HR [facility] Last Admin: 01/23/19 14:06 Dose: Not Given Sodium Chloride (Ns 0.9% 1000 Ml) 1,000 mls @ 75 mls/hr IV .per rate [facility] Vital Signs - 8 hr 01/23/19 01/23/19 01/23/19 06:57 07:27 07:30 Temperature Pulse Rate 75 Respiratory Rate Blood Pressure 113/66 115/70 (mmHg) O2 Sat by Pulse 95 Oximetry 01/23/19 01/23/19 01/23/19 07:57 08:00 08:27 Temperature Pulse Rate 88 91 69 Respiratory 15 14 13 Rate Blood Pressure 125/81 93/71 (mmHg) O2 Sat by Pulse 97 95 97 Oximetry 01/23/19 01/23/19 01/23/19 08:57 09:00 09:27 Temperature Pulse Rate 78 75 Respiratory 17 26 18 Rate Blood Pressure 100/71 110/59 (mmHg) O2 Sat by Pulse 96 96 Oximetry 01/23/19 01/23/19 01/23/19 10:01 10:28 10:57 Temperature Pulse Rate 88 Respiratory 23 25 24 Rate Blood Pressure 101/58 94/63 (mmHg) O2 Sat by Pulse 97 Oximetry 01/23/19 01/23/19 01/23/19 11:00 11:06 11:22 Temperature 98.0 F Pulse Rate 81 Respiratory 22 16 18 Rate Blood Pressure 94/63 (mmHg) O2 Sat by Pulse 98 Oximetry 01/23/19 11:46 Temperature 98 F Pulse Rate 85 Respiratory 20 Rate Blood Pressure 112/55 (mmHg) O2 Sat by Pulse 99 Oximetry Oxygen Devices in Use Now: None Exam: General -well, conversing well, though difficulty in comprehending during conversation Eyes - PERRLA, EOM intact HEENT- no abnormality Lymph Nodes - No lymphadenopathy Cardiovascular -irregularly irregular, no m/r/g, no JVD, no carotid bruits Lungs - clear on auscultation, no use of acessory muscles, no crackles or wheezes. Skin - No rashes, skin warm and dry, no erythematous areas Abdomen - Normal bowel sounds, abdomen soft and mild tenderness. Extremities -No cyanosis or clubbing over bilateral upper extremities. Musculo Skeletal - 5/5 strength, normal range of motion, no swollen or erythematous joints. Neurological Alert and oriented x 3, CN 2-12 grossly intact. Psychiatry- anxious, not depressed. Result Diagrams: 01/23/19 05:22 01/23/19 05:22 Additional Lab and Data: Lab Results 01/22/19 Range/Units 17:55 WBC 9.3 (3.5-10.8) 10^3/uL RBC 4.58 (4.18-5.48) 10^6 /uL Hgb 13.2 L (14.0-18.0) g/dL Hct 39 L (42-52) % MCV 86 (80-94) fL MCH 29 (27-31) pg MCHC 34 (31-36) g/dL RDW 16 H (10-15) % Plt Count 234 (150-450) 10^3/uL MPV 8.2 (7.4-10.4) fL Neut % (Auto) 70.8 % Lymph % (Auto) 16.3 % Villalba % (Auto) 10.3 % Eos % (Auto) 1.8 % Baso % (Auto) 0.8 % Absolute Neuts (auto) 6.5 (1.5-7.7) 10^3/ul Absolute Lymphs (auto) 1.5 (1.0-4.8) 10^3/ul Absolute Monos (auto) 1.0 H (0-0.8) 10^3/ul Absolute Eos (auto) 0.2 (0-0.6) 10^3/ul Absolute Basos (auto) 0.1 (0-0.2) 10^3/ul Absolute Nucleated RBC 0.0 10^3/ul Nucleated RBC % 0.0 Assess/Plan/Problems-Billing Assessment: 78 y/o male with history of mitral valve regurgitation, mitral valve prolapse s/ p repair in 1998, presented with chest pain, weakness which leads to a mechanical fall. He was found to have decreased EF at 40-45% and abnormal stress test recently, but negative trop this time. Also he was found Afib this admission. 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 Also this serves as pre-op test for further mitral valve replacement. Cardio consult. - cath today. (2) Mitral regurgitation Current Visit: No Status: Acute Comment: - recent TTE 12/29/2018: mod to severe regurgitation, restricted mitral valve leaflet; MR stable, MS progressed. - may need further surgical intervention in [place]. (3) Paroxysmal atrial fibrillation Current Visit: No Status: Acute Code(s): I48.0 - PAROXYSMAL ATRIAL FIBRILLATION SNOMED Code(s): 628104574 Comment: - persistent Afib this time - plan to start anticoagulation after cath (4) Full code status Current Visit: No Status: Acute Code(s): Z78.9 - OTHER SPECIFIED HEALTH STATUS SNOMED Code(s): 944403086 (5) Dementia Current Visit: Yes Status: Acute Code(s): F03.90 - UNSPECIFIED DEMENTIA WITHOUT BEHAVIORAL DISTURBANCE SNOMED Code(s): 29939192 Comment: Noted by patient's for long, no investigations done before add vitb12, folate to today's blood. (6) DVT prophylaxis Current Visit: No Status: Acute Code(s): UZO6871 - SNOMED Code(s): 716230159 Comment: on therapeutic dose of Lovenox Status and Disposition: Inpatient Medicine. Attestation Documenting Resident: Victorina Andrews Supervising Physician: Maribel Liu Attending/Supervising Physician Comment: I am concerned that his worsening mitral regurg is causing his presentation. Will eval further with [facility] and arrange for transfer to [place] if indicated. He and his believe the diagnosis of afib is new for him but it is in prior ekgs and histories. Will plan to start AC for [id number] of 2 after [facility]. Attestation: This service has been performed in part by a resident under the direction of a teaching physician.I, Maribel Liu, performed the service, or was physically present during the critical, or delgado portions of the service, furnished by the resident. I participated in the management of the patient.
[2019-01-23] MEDS ORDERED: Enoxaparin(*) 60 MG/0.6 ML SYR SUBCUT SCH (15:00)
--- NOTE | 2019-01-23 16:01 | CATH ---
*[facility]* [address] [address] Main: [phone] [email or web address] Cardiac Catheterization Patient: Salazar Landry : 1940 Study Date: 01/23/2019 Age: 78 Gender: M HR: Height: / BSA: Weight: / BMI: Retail Link Analyst: Rayo Soni MD Ordering Physician: Rayo Soni MD Referring Physician: Rayo Soni MD, Summary: 1. Normal Coronary arteries 2. No left ventricle gram done due to patient agitation. Recommendations: Evaluate for repeat mitral valve repair. Study data: Location: Catheterization laboratory. Consent: The risks, benefits, and alternatives to the procedure were explained to the patient and/or their healthcare business banking representative and written informed consent was obtained. All available pre-procedure labs were reviewed. Procedure: 1. Initial setup. The patient was brought to the laboratory. Surface ECG leads, blood pressure measurements, and pulse oximetric signals were monitored. A baseline seven lead ECG was recorded. A time out was observed per protocol. 2. Skin preparation. The planned puncture sites were prepped and draped in the usual sterile manner. 3. Local anesthesia. 1% lidocaine was administered. Study completion: Minimal estimated blood loss. All catheters inserted during the procedure were removed. There were no apparent complications. Discharge: The patient tolerated the procedure well and was discharged from the lab in stable condition. Findings Coronary arteries: The coronary circulation is right dominant. Left main: Normal, 0% stenosis. LAD: Normal, 0% stenosis. Left circumflex: Normal, 0% stenosis. Right coronary: Normal, 0% stenosis. Prepared and electronically signed by Rayo Soni MD 01/23/2019 16:01
[2019-01-23 16:25] LABS: Folate > 20.00 ng/mL (>3.99)
[2019-01-23] MEDS ORDERED: Haloperidol INJ IV/IM* 5 MG/ML AMP IV SLOW PU PRN (17:35)
[2019-01-23] MEDS ORDERED: Haloperidol INJ IV/IM* 5 MG/ML AMP IV SLOW PU ONE (21:17)
[2019-01-23] MEDS: Enoxaparin(*) 60 MG/0.6 ML SYR SUBCUT SCH (21:48)
--- NOTE | 2019-01-24 08:46 | PN ---
Hospitalist Progress Note Date of Service: 01/24/19 Subjective: The patient said he is feeling bad and has shortness of breath but denies any pain, lightheadedness, nausea or vomiting. Objective: GENERAL: At this time, Mr. Landry is disoriented to time and place and has shortness of breath. VITAL SIGNS: Blood pressure is 94/63, heart rate 81, respirations are 19, O2 saturations 98%, temperature was 98.7. HEENT: Head is atraumatic, normocephalic. Eyes: EOMs are intact. Sclerae anicteric and not pale. Oral mucosa appeared to be moist. NECK: Supple. LUNGS: Clear to auscultation bilaterally. No wheezes, rales, or rhonchi. CARDIAC: S1, S2. Regular rate and rhythm. He does have a murmur at the mitral valve. ABDOMEN: Soft and nontender. Bowel sounds are present. Stomach is very emaciated compared to yesterday. EXTREMITIES: He is able to move all 4 extremities. There is no clubbing or cyanosis. NEUROLOGIC: He is oriented to his name but disoriented to place and time. He thinks he is at home. EKG from 01/23/19: Atrial flutter, LVH, QRS>120, RBBB. Cardiac Cath done yesterday showed normal coronary arteries. Assessment: Mr. Landry is a 78-year-old male with a past medical history significant for atrial fibrillation, mitral valve regurgitation, mitral valve prolapse status post mitral valve repair at [facility] in 1998, supraventricular tachycardia, dyslipidemia, peripheral vascular disease in 2014 with mesenteric plaque, proximal, moderate, noted on CT, he was at Dr. Flores's office for a follow up after echo and stress test. The patient reported initially that he was not feeling good. The reported that he has been having a lot of dizzy spells and felt weak. He went down on his knees on 01/22/19 approximately at 9: 30 in the morning. The patient stated that he had been having chest pain and had been having shortness of breath with exertion. Plan: 1. Chest pain. Possible etiologies include unstable angina or KS, which can be ruled out based of the EKG. We will continue to trend his troponins. The patient currently denies any chest pain at this time. Dr. Soni was consulted, patient has been having worsening mitral reguritation over the last couple of years. Mitral valve repair surgery should be done in the near future. Cardiac catherization was completed yesterday. He is on aspirin 81 mg PO daily, acetaminophen 650 mg PO Q4H PRN, and atenolol 25 mg PO daily. 2. Mitral regurgitation: recent TTE on 12/29/2018: mod to severe regurgitation , restricted mitral valve leaflet; MR stable, MS progressed. He may need further surgical intervention in [place]. 3. Atrial fibrillation. The patient should continue on atenolol 25 mg p.o. daily. 4. DVT prophylaxis: He is on enoxaparin sodium 60 mg Q12hr. 5. Agitation: Haloperidol lactate 1 mg IV slow push Q6H PRN.
[2019-01-24] MEDS: Atenolol TAB* 25 MG PO SCH (08:53)
[2019-01-24] MEDS: Enoxaparin(*) 60 MG/0.6 ML SYR SUBCUT SCH (09:02)
[2019-01-24] MEDS: Aspirin EC TAB* 81 MG TAB.EC PO SCH (09:02)
[2019-01-24 09:31] LABS: ABS Eosinophils 0.1 10^3/ul (0-0.6); ABS Lymphocytes 1.5 10^3/ul (1.0-4.8); ABS Monocytes 0.7 10^3/ul (0-0.8); ABS Neutrophils 4.8 10^3/ul (1.5-7.7); Eosinophil % 1.9 %; Hematocrit 40 % (42-52); Hemoglobin 13.5 g/dL (14.0-18.0); Lymphocyte % 21.2 %; Mean Corpuscular HGB Conc 34 g/dL (31-36); Mean Corpuscular Hemoglobin 28 pg (27-31); Mean Corpuscular Volume 85 fL (80-94); Mean Platelet Volume 8.8 fL (7.4-10.4); Nucleated Red Blood Cells % 0.1; Platelet Count 224 10^3/uL (150-450); Red Blood Count 4.75 10^6 /uL (4.18-5.48); Red Cell Distribution Width 16 % (10-15); White Blood Count 7.2 10^3/uL (3.5-10.8)
[2019-01-24 09:45] LABS: BUN/Creatinine Ratio 21.3 (8-20); Calcium 9.2 mg/dL (8.6-10.3); EGFR African American 121.9 (>60); EGFR Non-African American 100.7 (>60)
--- NOTE | 2019-01-24 15:02 | PN ---
Subjective Date of Service: 01/24/19 Interval History: Patient is more oriented this morning, almost back to baseline. No chest pain, palpitation, SOB. Objective Active Medications: Acetaminophen (Tylenol Tab*) 650 mg PO Q4H PRN PRN Reason: MILD PAIN or TEMP > 100.4 Aspirin (Aspirin Ec Tab*) 81 mg PO DAILY [facility] Last Admin: 01/24/19 09:02 Dose: 81 mg Atenolol (Tenormin Tab*) 25 mg PO DAILY [facility] Last Admin: 01/24/19 08:53 Dose: Not Given Enoxaparin Sodium (Lovenox(*)) 60 mg SUBCUT Q12HR [facility] Last Admin: 01/24/19 09:02 Dose: 60 mg Haloperidol Lactate (Haldol Inj Iv/Im*) 1 mg IV SLOW PU Q6H PRN PRN Reason: AGITATION Last Admin: 01/23/19 17:57 Dose: 1 mg Vital Signs - 8 hr 01/24/19 01/24/19 01/24/19 07:40 08:26 11:30 Temperature 98.7 F 98.3 F Pulse Rate 81 73 Respiratory 19 18 20 Rate Blood Pressure 95/72 106/54 (mmHg) O2 Sat by Pulse 98 100 Oximetry Oxygen Devices in Use Now: None Exam: General -well, not in acute distress Eyes - PERRLA, EOM intact HEENT- no abnormality Lymph Nodes - No lymphadenopathy Cardiovascular -irregularly irregular, no m/r/g, no JVD, no carotid bruits Lungs - clear on auscultation, no use of acessory muscles, no crackles or wheezes. Skin - No rashes, skin warm and dry, no erythematous areas Abdomen - Normal bowel sounds, abdomen soft and mild tenderness. Extremities -No cyanosis or clubbing over bilateral upper extremities. right radial op site no bleeding. Musculo Skeletal - 5/5 strength, normal range of motion, no swollen or erythematous joints. Neurological Alert, not oriented to time, CN 2-12 grossly intact. Psychiatry- mood stable Result Diagrams: 01/24/19 08:55 01/24/19 08:55 Additional Lab and Data: Lab Results 01/22/19 Range/Units 17:55 WBC 9.3 (3.5-10.8) 10^3/uL RBC 4.58 (4.18-5.48) 10^6 /uL Hgb 13.2 L (14.0-18.0) g/dL Hct 39 L (42-52) % MCV 86 (80-94) fL MCH 29 (27-31) pg MCHC 34 (31-36) g/dL RDW 16 H (10-15) % Plt Count 234 (150-450) 10^3/uL MPV 8.2 (7.4-10.4) fL Neut % (Auto) 70.8 % Lymph % (Auto) 16.3 % [place] % (Auto) 10.3 % Eos % (Auto) 1.8 % Baso % (Auto) 0.8 % Absolute Neuts (auto) 6.5 (1.5-7.7) 10^3/ul Absolute Lymphs (auto) 1.5 (1.0-4.8) 10^3/ul Absolute Monos (auto) 1.0 H (0-0.8) 10^3/ul Absolute Eos (auto) 0.2 (0-0.6) 10^3/ul Absolute Basos (auto) 0.1 (0-0.2) 10^3/ul Absolute Nucleated RBC 0.0 10^3/ul Nucleated RBC % 0.0 Assess/Plan/Problems-Billing Assessment: 78 y/o male with history of mitral valve regurgitation, mitral valve prolapse s/ p repair in 1998, presented with chest pain, weakness which leads to a mechanical fall. He was found to have decreased EF at 40-45% and abnormal stress test recently, but negative trop this time. Also he was found Afib this admission. - Patient Problems (1) Chest pain Current Visit: No Status: Acute Code(s): R07.9 - CHEST PAIN, UNSPECIFIED SNOMED Code(s): 22569944 Comment: - chief complain this admission, leading to a fall, no recurrence after admission - troponin 0, Afib found in EKG, no ischemic changes otherwise - cardiac cath: normal coronary artery - TTE: EF 40-45%, no WMA - may need valve replacent in [place] in future. (awating discussion [facility] Dr. Flores) (2) Mitral regurgitation Current Visit: No Status: Acute Comment: - recent TTE 12/29/2018: mod to severe regurgitation, restricted mitral valve leaflet; MR stable, MS progressed. - may need further surgical intervention in [place]. (3) Paroxysmal atrial fibrillation Current Visit: No Status: Acute Code(s): I48.0 - PAROXYSMAL ATRIAL FIBRILLATION SNOMED Code(s): 403770843 Comment: - persistent Afib this time - plan to start anticoagulation after cath, currently on therapeutic Lovenox (4) Full code status Current Visit: No Status: Acute Code(s): Z78.9 - OTHER SPECIFIED HEALTH STATUS SNOMED Code(s): 541496484 (5) Dementia Current Visit: Yes Status: Acute Code(s): F03.90 - UNSPECIFIED DEMENTIA WITHOUT BEHAVIORAL DISTURBANCE SNOMED Code(s): 82149915 Comment: Noted by patient's for long, no investigations done before vitb12, folate intact. (6) DVT prophylaxis Current Visit: No Status: Acute Code(s): UOG7036 - SNOMED Code(s): 745145014 Comment: on therapeutic dose of Lovenox Status and Disposition: Inpatient Medicine. Attestation Documenting Resident: Victorina Andrews Supervising Physician: Maribel Liu Attending/Supervising Physician Comment: I suspect his presentation was related to worsening MR; awaiting plan from Cardiology re: timing of surgery. Attestation: This service has been performed in part by a resident under the direction of a teaching physician.I, Maribel Liu, performed the service, or was physically present during the critical, or delgado portions of the service, furnished by the resident. I participated in the management of the patient.
[2019-01-24 15:37] VITALS: BP 117/59
--- NOTE | 2019-01-24 17:56 | PN ---
Subjective Date of Service: 01/24/19 - CC: JACQUES, hx collapse, mitral insufficiency Interval History: The patient was seen with his and daughter. He is feeling better here. No further episodes of collapse. Medications Active Medications: Acetaminophen (Tylenol Tab*) 650 mg PO Q4H PRN PRN Reason: MILD PAIN or TEMP > 100.4 Aspirin (Aspirin Ec Tab*) 81 mg PO DAILY [facility] Last Admin: 01/24/19 09:02 Dose: 81 mg Atenolol (Tenormin Tab*) 25 mg PO DAILY [facility] Last Admin: 01/24/19 08:53 Dose: Not Given Enoxaparin Sodium (Lovenox(*)) 60 mg SUBCUT Q12HR [facility] Last Admin: 01/24/19 09:02 Dose: 60 mg Objective Vital Signs: Temp Pulse Resp BP Pulse Ox 97.3 F 55 18 117/59 100 01/24/19 15:35 01/24/19 15:35 01/24/19 15:35 01/24/19 15:35 01/24/19 15:35 Oxygen Devices in Use Now: None Appearance: lean older male, eating dinner, NAD Eyes: No Scleral Icterus, PERRLA Ears/Nose/Mouth/Throat: Mucous Membranes Moist Neck: Trachea Midline Respiratory: Symmetrical Chest Expansion and Respiratory Effort, Clear to Auscultation Cardiovascular: - - murmur of MR, low pitched at the apex radiating to the axilla Abdominal: NL Sounds; No Tenderness; No Distention Extremities: No Edema, No Clubbing, Cyanosis Skin: No Rash or Ulcers Neurological: - - oriented to person and place, short term memory not good, no gross motor deficits on bed exam. Lines/Tubes/Other Access: Clean, Dry and Intact Peripheral IV Laboratory Results: 01/24/19 08:55 01/24/19 08:55 INR (Anticoag Therapy) 1.09 (0.82-1.09) 01/22/19 17:55 Total Bilirubin 0.60 mg/dL (0.2-1.0) 01/22/19 17:55 AST 16 U/L (13-39) 01/22/19 17:55 ALT 17 U/L (7-52) 01/22/19 17:55 Alkaline Phosphatase 61 U/L (34-104) 01/22/19 17:55 Total Protein 7.0 g/dL (6.4-8.9) 01/22/19 17:55 Albumin 4.1 g/dL (3.2-5.2) 01/22/19 17:55 Globulin 2.9 g/dL (2-4) 01/22/19 17:55 Albumin/Globulin Ratio 1.4 (1-3) 01/22/19 17:55 01/22/19 01/22/19 01/22/19 17:55 20:43 23:24 Troponin I 0.00 0.00 0.00 Diagnostic Imaging: Surface ECG leads, blood pressure measurements, and pulse oximetric signals were monitored. A baseline seven lead ECG was recorded. A time out was observed per protocol. 2. Skin preparation. The planned puncture sites were prepped and Cardiac catheterization 01/23/19: Findings Coronary arteries: The coronary circulation is right dominant. Left main: Normal, 0% stenosis. LAD: Normal, 0% stenosis. Left circumflex: Normal, 0% stenosis. Right coronary: Normal, 0% stenosis. Prepared and electronically signed by Rayo Soni MD 01/23/2019 16:01 Dictated Date/Time: 01/23/19 1939 EKG Data: ECG's 01/22, 01/23 show afib vs fine atypical flutter. Monitor today: afib, controlled ventricular rate. [place] [facility] [place]R (day prior afib, RVR). Assessment/Plan 78 yo male with hx MV prolapse, s/p MV repair, quite durable for years, now with mod-severe MR, mild to moderate drop in EF and now in afib, controlled rate. Cath here: Normal C's Collapse at home etiology uncertain, no evidence of bradycardia here while in afib, some risk of SNRT (slow sinus node recovery time) if going in and out of NSR and PAF. Plan: Initiate anticoagulation-NOAC. Continue atenolol for now. Outpatient: [facility] Unlikely to maintain NSR with his MR, but could consider JONO guided CV at some point. Event monitor (external, had an implantable EM distantly and it erroded through skin after about a year). Refer to Dr Estrada for possible redo valve surgery. The patient's amenable to this plan. The patient, want to go home tonight and f/u with outpatient work up. Activity restrictions discussed, he is doing better here with less activity.
[2019-01-24] MEDS ORDERED: Apixaban* 5 MG TAB PO ONE (18:15)
--- NOTE | 2019-01-25 09:58 | DS ---
ADDENDUM NOW INCLUDED ON THIS REPORT CC: Dr. Flores; Dr. Pascual * DISCHARGE SUMMARY: DATE OF ADMISSION: 01/22/19 DATE OF DISCHARGE: 01/24/19 PRINCIPAL DISCHARGE DIAGNOSES: 1. Severe mitral regurgitation. 2. Atrial fibrillation. 3. Chest pain. SECONDARY DISCHARGE DIAGNOSIS: Dementia. MEDICATIONS ON DISCHARGE: 1. Atenolol 25 mg daily. 2. Zetia 10 mg daily. 3. Senna daily. 4. Eliquis 5 mg b.i.d. PHYSICAL EXAMINATION AT DISCHARGE: Temperature 97.3, heart rate 55, respiratory rate 18, pulse ox 100% on room air, blood pressure 117/59. General : Alert, well- appearing, man, in no distress, visiting with his family at the bedside, sitting up in bed. HEENT: Pupils equal, round, reactive to light. Oral mucosa is moist. Neck: No JVP. No adenopathy. Chest: He is in a regular rhythm with a holosystolic murmur at the apex with radiation to the axilla. His lungs are clear bilaterally. Abdomen: Soft, nontender, nondistended. Extremities: He has a right radial artery cath site that is clean with no hematoma. No lower extremity edema. Neurologic: He is alert and oriented to person and place, but does not know the year. HOSPITAL COURSE BY PROBLEM: 1. Chest pain and collapse. Mr. Landry was admitted from Dr. Flores's office after he complained of an episode of chest pain and near syncope the day prior to admission. He was monitored on telemetry and had no events. His troponins were negative x3. He underwent a left heart cath, which was negative for coronary artery disease. His symptoms were thought to be related to worsening mitral regurgitation in combination with relatively new onset of atrial fibrillation. Dr. Flores was consulted and agreed with therapeutic anticoagulation and referral to cardiothoracic surgery, which she thought could be done on an outpatient basis. She had been in contact with Dr. Estrada in [place]. The plan will be for Mr. Landry to have a [facility] next week to further quantify the degree of mitral regurgitation and then evaluation by Dr. Estrada for possible redo mitral valve surgery. His atrial fibrillation may also be contributing to his collapse and he was continued on his home dose of atenolol as he was rate controlled on that throughout his hospitalization. 2. Severe mitral regurgitation. As above, he will follow up with Dr. Flores and Dr. Estrada next week with plans for possible outpatient redo surgery. I educated him and his extensively on his need to rest over the next week. He is not to mow the lawn, which he was most concerned about and is to avoid exertion when possible. His and daughter are in support of this plan and are able to help him. 3. Atrial fibrillation. He and his believe this is a new diagnosis for him, but it appears he has had this in the past. He has not, however, been on anticoagulation. His CHADS2-VASc score is 2. He was started on therapeutic Lovenox while in the hospital given unclear plans for surgery; however, at the time of discharge, he was transitioned to Eliquis. He and his were educated about the risk of bleeding especially with his recent fall and his ongoing mitral regurgitation. Again emphasized was the importance of avoiding exertion and maintaining normotension and they are in agreement. 4. Dementia. Mr. Landry has baseline dementia and experienced delirium post left heart cath after receiving some benzodiazepines during the procedure. He cleared up quickly the following morning; however, this should be noted in anticipation of a possible surgery in the near future. He will be high risk for postop delirium. DISPOSITION: Mr. Landry is being discharged to home with his on 11/23/18 with close followup with Cardiology and CT Surgery. CONDITION AT THE TIME OF DISCHARGE: Stable. ADDENDUM: Please note that while his discharge instructions included aspirin on the medication list, I have discontinued this and I have called his , Trista, and instructed her to discontinue his aspirin. [id number]/[facility] #: [id number] A- [id number]/[facility] #: [id number] HILDA
--- NOTE | 2019-01-25 22:14 | DS ---
DISCHARGE SUMMARY: ADDENDUM: Please note that while his discharge instructions included aspirin on the medication list, I have discontinued this and I have called his , Trista and instructed her to discontinue his aspirin. [id number]/[facility] #: [id number] HILDA
== END 2019-01-24 19:00 | disposition home or self-care (01) | DRG 287 ==
LOC: ED 17:13 → MEDTELE 22:06
PROVIDERS: ADMIT Hospitalist; ATTEND Internal Medicine
PROC: B211YZZ Fluoroscopy of Multiple Coronary Arteries using Other Contrast (ICD-10-PCS; 2019-01-23)
PROC: 4A023N7 Measurement of Cardiac Sampling and Pressure, Left Heart, Percutaneous Approach (ICD-10-PCS; principal; 2019-01-23 14:30)
DX: I34.0 Nonrheumatic mitral (valve) insufficiency (principal); I47.1 Supraventricular tachycardia; R07.9 Chest pain, unspecified; I48.0 Paroxysmal atrial fibrillation; E78.5 Hyperlipidemia, unspecified; I73.9 Peripheral vascular disease, unspecified; F03.90 Unspecified dementia, unspecified severity, without behavioral disturbance, psychotic disturbance, mood disturbance, and anxiety; I49.3 Ventricular premature depolarization; R55 Syncope and collapse; I45.10 Unspecified right bundle-branch block; Z79.899 Other long term (current) drug therapy; Z79.82 Long term (current) use of aspirin; Z88.6 Allergy status to analgesic agent; Z88.5 Allergy status to narcotic agent; Z88.8 Allergy status to other drugs, medicaments and biological substances; Z87.891 Personal history of nicotine dependence
CPT/HCPCS: 36415; 76937; 80048; 80053; 82607; 82746; 84484; 85025; 85610; 93005; 93454; 99156; 99157; 99284; A9270-GY; J1630; J1644; J1650; J2250; J3010